=== PATIENT | male | born 1950 | race Caucasian/White ===

== ENCOUNTER 2018-03-30 19:39 | Emergency (ER) | payer MEDICARE, BC ==
--- NOTE | 2018-03-30 19:52 | ER Report ---
History and Physical Time Seen By MD: 19:52 Hx. of Stated Complaint: pt traveling from [place], started feeling poor yesterday after going up [place]. pt having 6/10 headache, and trouble urinating. HPI/ROS Chief Complaint: "Urinary pain and headache" HPI: 67-year-old male presents to the ED with complaints of pain with urination and headache. Reports the head ache is no different from his usual headache and resolved with Aleve. The patient states he does not feel burning with urination just pain and inability to void completely. States he did have fevers and chills earlier today. States he has to go to the bathroom frequently because of this. No treatments tried. History of abdominal surgery in 2006 due to GI perforation of the colon, colostomy placement, re-anastomosis, and repaired hernia post operatively. The patient reports a medical history of hypertension, diabetes melitis, and chronic diarrhea. ROS: General: reports fevers and chills HEENT: reports headache, Respiratory: denies difficulty breathing or shortness of breath CV: denies chest pain GI: denies abdominal pain, denies constipation, reports diarrhea : reports pain with urination, reports inability to void completely, denies burning sensation. Allergies: Coded Allergies: No Known Drug Allergies (Unverified , 03/30/18) Home Meds Active Scripts Sulfamethoxazole/Trimet 800-160 Mg Tab (BACTRIM DS TABLET) 1 Each Tablet, 1 TAB PO Q12H for 10 Days, #20 TAB Prov:HIMANSHU TOPETE [facility] 03/30/18 Reported Medications Liraglutide (VICTOZA 2-JUANITA) 0.6 Mg/0.1 Ml Pen.injctr, 18 MG SQ 03/30/18 Pioglitazone Hcl (PIOGLITAZONE HCL) 45 Mg Tablet, 45 MG PO QDAY 03/30/18 Zolpidem Tartrate (AMBIEN) 10 Mg Tablet, 1 TAB PO QHS, TAB 03/30/18 [place]-3S/Dha/Epa/Fish Oil (Fish Oil 1,200 mg Softgel) 720-1,200MG Capsule.dr, 1200 QDAY 03/30/18 Dapagliflozin Propanediol (Farxiga) 10 Mg Tablet, TAB PO QDAY 03/30/18 Aspirin (ASPIR 81) 81 Mg Tablet.dr, 81 MG PO BID, TAB 03/30/18 Omeprazole (OMEPRAZOLE) 40 Mg Capsule.dr, 40 MG PO QDAY, CAP 03/30/18 Carvedilol (CARVEDILOL) 25 Mg Tablet, 25 MG PO BID, #10 TAB 03/30/18 Glimepiride (GLIMEPIRIDE) 1 Mg Tablet, 1 MG PO QDAY 03/30/18 Trandolapril (TRANDOLAPRIL) 4 Mg Tablet, 4 MG PO QDAY 03/30/18 Pravastatin Sodium (PRAVACHOL) 20 Mg Tablet, 40 MG PO HS, TAB 03/30/18 Metformin Hcl (METFORMIN HCL) 1,000 Mg Tablet, 1 TAB PO BID, TAB 03/30/18 Past Medical/Surgical History Type II diabetes Hypertension Gastrointestinal perforation in 2006 Reviewed Nurses Notes: Yes Constitutional Vital Sign - Last 24 Hours 03/30/18 03/30/18 03/30/18 03/30/18 19:47 20:00 20:15 20:30 Temp 98.8 Pulse 104 99 94 98 Resp 18 B/P (MAP) 150/95 Pulse Ox 88 93 94 94 O2 Delivery Room Air 03/30/18 03/30/18 03/30/18 03/30/18 20:44 20:45 21:00 21:15 Pulse 97 97 94 B/P (MAP) 125/70 (88) Pulse Ox 94 94 95 03/30/18 21:30 Pulse 97 Pulse Ox 96 Intake and Output 03/30/18 03/30/18 03/31/18 15:00 23:00 07:00 Intake Total 1000 ml Balance 1000 ml Physical Exam General: 67-year-old male in no acute distress Skin: Pale, pink, and well perfused HEENT: normocephalic, atraumatic, pupils round reactive to light and accommodation bilaterally, TMs wil anderson and without effusion bilaterally, no erythema or exudate of the throat Respiratory: bilaterally equal respiratory excursion, CTA BL CV: Clear S1 S2, no murmurs GI: normoactive BS x 4, no tenderness to palpation, no hepato-splenomegaly : no CVA tenderness, no suprapubic pain Differentials include sepsis, urinary tract infection, gastroenteritis, BPH, urinary retention Medical Decision Making Data Points Result Diagram: 03/30/18200003/30/182000 Laboratory Hematology Test 03/30/18 19:45 03/30/18 20:01 Urine Color Yellow Urine Clarity Slightly-cloudy Urine pH 6.0 pH (4.8-9.5) Urine Specific [place] 1.026 Urine Protein 30 mg/dL (NEGATIVE) Urine Glucose (UA) 500 mg/dL (NEGATIVE) Urine Ketones 20 mg/dL (NEGATIVE) Urine Blood Moderate (NEGATIVE) Urine Nitrite Negative (NEGATIVE) Urine Bilirubin Negative (NEGATIVE) Urine Urobilinogen Negative mg/dL (0.2-1.9) Urine Leukocyte Esterase Moderate (NEGATIVE) Urine RBC 28 /HPF (0-2/HPF) Urine WBC 227 /HPF (0-5/HPF) Urine Squamous Epithelial Cells None /LPF (</=FEW) Urine Transitional Epithelial Cells Few /LPF (NONE-FEW) Urine Bacteria Few /HPF (NONE-FEW) Urine Mucus None /HPF (NONE-FEW) Red Blood Count 3.95 M/uL (4.00-5.60) Mean Corpuscular Volume 97.7 fL (80.0-96.0) Mean Corpuscular Hemoglobin 33.7 pg (26.0-33.0) Mean Corpuscular Hemoglobin Concent 34.4 g/dL (32.0-36.0) Red Cell Distribution Width 14.0 % (11.5-14.5) Mean Platelet Volume 9.1 fL (7.2-11.1) Neutrophils (%) (Auto) 83.9 % (39.4-72.5) Lymphocytes (%) (Auto) 6.9 % (17.6-49.6) Monocytes (%) (Auto) 8.7 % (4.1-12.4) Eosinophils (%) (Auto) 0.2 % (0.4-6.7) Basophils (%) (Auto) 0.3 % (0.3-1.4) Nucleated RBC Relative Count (auto) 0.0 /100WBC Neutrophils # (Auto) 11.8 K/uL (2.0-7.4) Lymphocytes # (Auto) 1.0 K/uL (1.3-3.6) Monocytes # (Auto) 1.2 K/uL (0.3-1.0) Eosinophils # (Auto) 0.0 K/uL (0.0-0.5) Basophils # (Auto) 0.0 K/uL (0.0-0.1) Nucleated RBC Absolute Count (auto) 0.00 K/uL Sodium Level 135 mmol/L (137-145) Potassium Level 3.9 mmol/L (3.5-5.0) Chloride Level 99 mmol/L (98-107) Carbon Dioxide Level 23 mmol/L (22-30) Blood Urea Nitrogen 15 mg/dl (9-21) Creatinine 1.00 mg/dl (0.66-1.25) Glomerular Filtration Rate Calc > 60.0 Random Glucose 161 mg/dl (75-110) Calcium Level 9.0 mg/dl (8.4-10.2) Total Bilirubin 0.9 mg/dl (0.2-1.3) Aspartate Amino Transf (AST/SGOT) 17 U/L (0-35) Alanine Aminotransferase (ALT/SGPT) 19 U/L (0-56) Alkaline Phosphatase 91 U/L (0-126) Total Protein 7.3 g/dl (6.3-8.2) Albumin 3.9 g/dl (3.5-5.0) Chemistry Test 03/30/18 19:45 03/30/18 20:01 Urine Color Yellow Urine Clarity Slightly-cloudy Urine pH 6.0 pH (4.8-9.5) Urine Specific [place] 1.026 Urine Protein 30 mg/dL (NEGATIVE) Urine Glucose (UA) 500 mg/dL (NEGATIVE) Urine Ketones 20 mg/dL (NEGATIVE) Urine Blood Moderate (NEGATIVE) Urine Nitrite Negative (NEGATIVE) Urine Bilirubin Negative (NEGATIVE) Urine Urobilinogen Negative mg/dL (0.2-1.9) Urine Leukocyte Esterase Moderate (NEGATIVE) Urine RBC 28 /HPF (0-2/HPF) Urine WBC 227 /HPF (0-5/HPF) Urine Squamous Epithelial Cells None /LPF (</=FEW) Urine Transitional Epithelial Cells Few /LPF (NONE-FEW) Urine Bacteria Few /HPF (NONE-FEW) Urine Mucus None /HPF (NONE-FEW) White Blood Count 14.0 k/uL (4.5-11.0) Red Blood Count 3.95 M/uL (4.00-5.60) Hemoglobin 13.3 g/dL (14.0-18.0) Hematocrit 38.6 % (42.0-52.0) Mean Corpuscular Volume 97.7 fL (80.0-96.0) Mean Corpuscular Hemoglobin 33.7 pg (26.0-33.0) Mean Corpuscular Hemoglobin Concent 34.4 g/dL (32.0-36.0) Red Cell Distribution Width 14.0 % (11.5-14.5) Platelet Count 182 K/uL (150-450) Mean Platelet Volume 9.1 fL (7.2-11.1) Neutrophils (%) (Auto) 83.9 % (39.4-72.5) Lymphocytes (%) (Auto) 6.9 % (17.6-49.6) Monocytes (%) (Auto) 8.7 % (4.1-12.4) Eosinophils (%) (Auto) 0.2 % (0.4-6.7) Basophils (%) (Auto) 0.3 % (0.3-1.4) Nucleated RBC Relative Count (auto) 0.0 /100WBC Neutrophils # (Auto) 11.8 K/uL (2.0-7.4) Lymphocytes # (Auto) 1.0 K/uL (1.3-3.6) Monocytes # (Auto) 1.2 K/uL (0.3-1.0) Eosinophils # (Auto) 0.0 K/uL (0.0-0.5) Basophils # (Auto) 0.0 K/uL (0.0-0.1) Nucleated RBC Absolute Count (auto) 0.00 K/uL Glomerular Filtration Rate Calc > 60.0 Calcium Level 9.0 mg/dl (8.4-10.2) Total Bilirubin 0.9 mg/dl (0.2-1.3) Aspartate Amino Transf (AST/SGOT) 17 U/L (0-35) Alanine Aminotransferase (ALT/SGPT) 19 U/L (0-56) Alkaline Phosphatase 91 U/L (0-126) Total Protein 7.3 g/dl (6.3-8.2) Albumin 3.9 g/dl (3.5-5.0) Urinalysis Test 03/30/18 19:45 Urine Color Yellow Urine Clarity Slightly-cloudy Urine pH 6.0 pH (4.8-9.5) Urine Specific [place] 1.026 Urine Protein 30 mg/dL (NEGATIVE) Urine Glucose (UA) 500 mg/dL (NEGATIVE) Urine Ketones 20 mg/dL (NEGATIVE) Urine Blood Moderate (NEGATIVE) Urine Nitrite Negative (NEGATIVE) Urine Bilirubin Negative (NEGATIVE) Urine Urobilinogen Negative mg/dL (0.2-1.9) Urine Leukocyte Esterase Moderate (NEGATIVE) Urine RBC 28 /HPF (0-2/HPF) Urine WBC 227 /HPF (0-5/HPF) Urine Squamous Epithelial Cells None /LPF (</=FEW) Urine Transitional Epithelial Cells Few /LPF (NONE-FEW) Urine Bacteria Few /HPF (NONE-FEW) Urine Mucus None /HPF (NONE-FEW) ED Course/Re-evaluation ED Course 67-year-old male presents to the ED with a two day history of painful urination and headache. He states his headache has been relieved by Aleve and was similar to headaches he as had in the past. The patient reports chills and feverish symptoms with painful urination but no burning or back pain. History and physical examination obtained, differential diagnoses considered and discussed with the patient. A UA, CBC, CMP, and bladder scan were obtained and suggest UTI. The patient was administered 1000mls of NS and Rocephin in the ED today and will be sent home for self care on Bactrim. The patient has been encouraged to drink lots of water and return to the clinic if his condition worsens or does not improve. Decision to Disposition Date: Mar 30, 2018 Decision to Disposition Time: 21:30 Depart Departure Latest Vital Signs Vital Signs Date Time Temp Pulse Resp B/P (MAP) Pulse Ox O2 Delivery O2 Flow Rate FiO2 03/30/18 21:30 97 96 03/30/18 20:44 125/70 (88) 03/30/18 19:47 98.8 18 Room Air Impression: Primary Impression: Urinary tract infection Condition: Improved Disposition: HOME OR SELF-CARE New Scripts Sulfamethoxazole/Trimet 800-160 Mg Tab (BACTRIM DS TABLET) 1 Each Tablet 1 TAB PO Q12H for 10 Days, #20 TAB Prov: HIMANSHU TOPETE 03/30/18 Patient Instructions: Urinary Tract Infection in Men (ED) Additional Instructions: Take Bactrim once in the morning and once at night for 10 days. Follow up with your primary care provider within the next week. Return to the ED if your condition worsens or if you experience night sweats, fevers, chills, or back pain. We will call with results of the culture if antibiotics need to be changed. Problem Qualifiers Primary Impression: Urinary tract infection Urinary tract infection type: acute cystitis Hematuria presence: without hematuria Qualified Codes: N30.00 - Acute cystitis without hematuria HIMANSHU TOPETE Mar 30, 2018 19:52
[2018-03-30] MEDS ORDERED: METF-421 PO (20:08)
[2018-03-30] MEDS ORDERED: PRAV20TA65 PO (20:10)
[2018-03-30] MEDS ORDERED: GLIM1TAB25 PO (20:10)
[2018-03-30] MEDS ORDERED: TRAN4TAB2 PO (20:10)
[2018-03-30] MEDS ORDERED: CARV25TA78 PO (20:10)
[2018-03-30] MEDS ORDERED: PIOG45TA3 PO (20:13)
[2018-03-30] MEDS ORDERED: ZOLP-350 PO (20:13)
[2018-03-30] MEDS ORDERED: ASPI-1471 PO (20:13)
[2018-03-30] MEDS ORDERED: OMEG-177 (20:13)
[2018-03-30] MEDS ORDERED: DAPA10TA PO (20:13)
[2018-03-30] MEDS ORDERED: OMEP40CA48 PO (20:13)
[2018-03-30] MEDS ORDERED: LIRA0.6P3 SQ (20:14)
[2018-03-30] MEDS ORDERED: NS(*) 0.9% 1000 ML BAG 1,000 ML IV ONE (20:20)
[2018-03-30 20:31] LABS: PLATELET COUNT, AUTOMATED 182 K/uL (150-450)
[2018-03-30 20:44] VITALS: BP 125/70
[2018-03-30] MEDS ORDERED: cefTRIAXone 1 GM VIAL IVP ONE (20:55)
[2018-03-30] MEDS ORDERED: SULF-198 PO (21:31)
[2018-03-30] MEDS ORDERED: TRIMETHOPRIM/SULFA 160-800 TH 2 TAB/BOTTLE PO ONE (21:45)
== END 2018-03-30 21:51 | disposition home or self-care (01) ==
LOC: ER 19:59
DX: N30.00 Acute cystitis without hematuria (principal)
CPT/HCPCS: 81001; 85025; 87088; 96361; 96374; 99283; J0696; J7030; 82040; 82247; 82310; 82374; 82435; 82565; 82947; 84075; 84132; 84155; 84295; 84450; 84460; 84520